=== PATIENT | female | born 1985 | race Caucasian/White ===

== ENCOUNTER → 2024-02-23 16:22 | Outpatient (REF) | payer OTHER, SELFPAY | LOC: RAD 16:22 | PROVIDERS: ATTENDING PHYSICIAN Specialist; FAMILY PHYSICIAN Nurse Practitioner | DX: R79.89 Other specified abnormal findings of blood chemistry (principal) | CPT/HCPCS: 76770 ==

== ENCOUNTER → 2024-12-06 14:32 | Outpatient (REF) | payer OTHER, SELFPAY | LOC: HWWDC 14:32 | PROVIDERS: ATTENDING PHYSICIAN Nurse Practitioner | DX: Z12.31 Encounter for screening mammogram for malignant neoplasm of breast (principal) | CPT/HCPCS: 77063; 77067 ==